=== PATIENT | female | born 1955 | race Caucasian/White ===

== ENCOUNTER 2023-06-04 12:40 | Emergency (ER) | payer MEDICARE, OTHER ==
[~2023-06-04] VITALS: Ht 172 cm; Wt 56.7 kg
--- NOTE | 2023-06-04 13:28 | ED General ---
General Chief Complaint: Respiratory Problems Stated Complaint: SOA/RAPID HEART RATE/EXHAUSTION Nursing Triage Note: HAS A HX OF AFIB AND STATES HER HEART RATE HAS BEEN AROUND 130 TODAY. MAIN COMPLAINT IS SOB Source of Information: Patient Exam Limitations: No Limitations History of Present Illness Date Seen by Provider: Jun 04, 2023 Time Seen by Provider: 13:01 Allergies and Home Medications Allergies Coded Allergies: No Known Drug Allergies (Unverified , 06/04/23) Patient Home Medication List Home Medication List Reviewed: Yes Past Txmsoag-Secsgb-Uzupyz Hx Patient Social History Tobacco Use?: No Use of E-Cig and/or Vaping dev: No Substance use?: No Pt feels they are or have been: No Past Medical History Surgery/Hospitalization HX: LOW BLOOD SUGAR, AFIB Physical Exam Vital Signs Vital Signs - First Documented Capillary Refill : Less Than 3 Seconds Height, Weight, BMI Height: '" Weight: lbs. oz. kg; 19.00 BMI Method: Progress/Results/Core Measures Suspected Sepsis SIRS Temperature: Pulse: 164 Respiratory Rate: 20 Laboratory Tests 06/04/23 13:25: White Blood Count 6.8 Blood Pressure 108 /79 Mean: 89 Laboratory Tests 06/04/23 13:25: Creatinine 0.97, Platelet Count 228 Results/Orders Lab Results Laboratory Tests Test 06/04/23 13:25 06/04/23 14:30 06/04/23 15:11 Range/Units White Blood Count 6.8 4.3-11.0 10^3/uL Red Blood Count 4.30 3.80-5.11 10^6/uL Hemoglobin 13.3 11.5-16.0 g/dL Hematocrit 41 35-52 % Mean Corpuscular Volume 96 80-99 fL Mean Corpuscular Hemoglobin 31 25-34 pg Mean Corpuscular Hemoglobin Concent 32 32-36 g/dL Red Cell Distribution Width 14.0 10.0-14.5 % Platelet Count 228 130-400 10^3/uL Mean Platelet Volume 9.5 9.0-12.2 fL Immature Granulocyte % (Auto) 0 % Neutrophils (%) (Auto) 69 42-75 % Lymphocytes (%) (Auto) 18 12-44 % Monocytes (%) (Auto) 8 0-12 % Eosinophils (%) (Auto) 3 0-10 % Basophils (%) (Auto) 1 0-10 % Neutrophils # (Auto) 4.7 1.8-7.8 10^3/uL Lymphocytes # (Auto) 1.2 1.0-4.0 10^3/uL Monocytes # (Auto) 0.6 0.0-1.0 10^3/uL Eosinophils # (Auto) 0.2 0.0-0.3 10^3/uL Basophils # (Auto) 0.1 0.0-0.1 10^3/uL Immature Granulocyte # (Auto) 0.0 0.0-0.1 10^3/uL Sodium Level 142 135-145 MMOL/L Potassium Level 4.0 3.6-5.0 MMOL/L Chloride Level 112 H 98-107 MMOL/L Carbon Dioxide Level 25 21-32 MMOL/L Anion Gap 5 5-14 MMOL/L Blood Urea Nitrogen 20 H 7-18 MG/DL Creatinine 0.97 0.60-1.30 MG/DL Estimat Glomerular Filtration Rate 63 BUN/Creatinine Ratio 21 Glucose Level 69 L 70-105 MG/DL Calcium Level 8.7 8.5-10.1 MG/DL Magnesium Level 2.1 1.6-2.4 MG/DL TSH [place] Testing 0.98 0.35-4.94 UIU/ML Glucometer 69 L 136 H 70-110 MG/DL My Orders Orders - PRISCILLA ZARATE MD Ed Iv/Invasive Line Start (06/04/23 13:10) Ekg Tracing (06/04/23 13:10) Monitor-Rhythm Ecg Trace Only (06/04/23 13:10) Basic Metabolic Panel (06/04/23 13:10) Cbc And Automated Diff (06/04/23 13:10) Magnesium (06/04/23 13:10) Thyroid Analyzer (06/04/23 13:10) Ns Iv 500 Ml (Ns Iv 500 Ml) (06/04/23 13:45) Accucheck Stat ONCE (06/04/23 14:32) Accucheck Stat ONCE (06/04/23 14:32) Medications Given in ED Current Medications Medications Dose Ordered Sig/[place] Route Start Time Stop Time Status Last Admin Dose Admin Sodium Chloride 500 ml @ 0 mls/hr Q0M ONCE IV 06/04/23 13:45 06/04/23 13:46 DC 06/04/23 13:56 500 MLS/HR Vital Signs/I&O 06/04/23 06/04/23 06/04/23 12:45 12:45 15:33 Temp 35.7 Pulse 164 99 Resp 20 15 B/P (MAP) 108/79 (89) 105/77 Pulse Ox 98 98 O2 Delivery Room Air Room Air Room Air Capillary Refill : Less Than 3 Seconds Blood Pressure Mean: 89 ECG Initial ECG Impression Date: Jun 04, 2023 Initial ECG Impression Time: 12:57 Initial ECG Rate: 119 Initial ECG Rhythm: A Fib/Flutter Initial ECG Impression: Atrial Fibrillation w/RVR Comment Atrial fibrillation with RVR. No ST elevation or depression. LVH noted. No other abnormal intervals. Departure Impression Primary Impression: Atrial fibrillation with RVR Additional Impression: Hypoglycemia Disposition: 01 HOME, SELF-CARE Condition: Improved Departure-Patient Inst. Decision time for Depature: 15:28 Referrals: SERGO PATTERSON MD (PCP) Primary Care Physician Patient Instructions: Atrial fibrillation Add. Discharge Instructions: You are currently in atrial fibrillation. Your heart rate seems to be improving with your increased dosage of sotalol and hydration. You may continue using sotalol 80 mg twice daily through the weekend, and then contact your estimator on Tuesday morning. If your heart rate stays below 120 at rest, no further action should be needed until you discuss with your estimator. However, if you have persistent heart rate greater than 120 at rest, return to the emergency room for further evaluation. Drink plenty of clear liquids to stay well-hydrated. Continue taking Eliquis as previously prescribed. Call with questions or concerns, or return to the ER if you have significant worsening of condition. Continue to eat small healthy snacks throughout the day to maintain your blood sugar. All discharge instructions reviewed with patient and/or family. Voiced understanding. PRISCILLA ZARATE MD Jun 04, 2023 13:28
[2023-06-04 13:30] LABS: BASOPHILS # (AUTO) 0.1 10^3/uL (0.0-0.1); BASOPHILS % (AUTO) 1 % (0-10); EOSINOPHILS # (AUTO) 0.2 10^3/uL (0.0-0.3); EOSINOPHILS % (AUTO) 3 % (0-10); HEMATOCRIT 41 % (35-52); HEMOGLOBIN 13.3 g/dL (11.5-16.0); LYMPHOCYTES # (AUTO) 1.2 10^3/uL (1.0-4.0); LYMPHOCYTES % (AUTO) 18 % (12-44); MEAN CORPUSCULAR HEMOGLOBIN 31 pg (25-34); MEAN CORPUSCULAR HGB CONC 32 g/dL (32-36); MEAN CORPUSCULAR VOLUME 96 fL (80-99); MEAN PLATELET VOLUME 9.5 fL (9.0-12.2); MONOCYTES # (AUTO) 0.6 10^3/uL (0.0-1.0); MONOCYTES % (AUTO) 8 % (0-12); NEUTROPHILS # (AUTO) 4.7 10^3/uL (1.8-7.8); NEUTROPHILS % (AUTO) 69 % (42-75); PLATELET COUNT 228 10^3/uL (130-400); WHITE BLOOD COUNT 6.8 10^3/uL (4.3-11.0)
[2023-06-04 13:36] LABS: CALCIUM 8.7 MG/DL (8.5-10.1)
[2023-06-04 13:41] LABS: CREATININE SERUM 0.97 MG/DL (0.60-1.30)
[2023-06-04 13:43] LABS: MAGNESIUM 2.1 MG/DL (1.6-2.4)
[2023-06-04] MEDS ORDERED: NS IV 500 ML 500 ML IV ONE (13:45)
[2023-06-04 14:03] LABS: TSH (THYROID ANALYZER) 0.98 UIU/ML (0.35-4.94)
[2023-06-04 15:33] VITALS: BP 105/77
== END 2023-06-04 15:34 | disposition home or self-care (01) ==
LOC: ER 12:44
DX: I48.91 Unspecified atrial fibrillation (principal); E16.2 Hypoglycemia, unspecified
CPT/HCPCS: 36415; 80048; 82947; 83735; 84443; 85025; 93005